=== PATIENT | female | born 1965 ===

== ENCOUNTER 2021-09-07 06:00 | Day surgery (SDC) | payer OTHER | END 2021-09-07 11:30 | disposition home or self-care (01) | LOC: AMB-ENDOS 06:00 | PROVIDERS: ATTEND Surgery | DX: D12.7 Benign neoplasm of rectosigmoid junction (principal); Z20.822 Contact with and (suspected) exposure to COVID-19; K62.89 Other specified diseases of anus and rectum; J45.909 Unspecified asthma, uncomplicated; Z88.0 Allergy status to penicillin; E03.9 Hypothyroidism, unspecified ==

== ENCOUNTER 2021-11-30 11:03 | Outpatient (CLI) | payer OTHER | END 2021-12-27 13:46 | disposition home or self-care (01) | LOC: SONOGRAMA 11:03 | PROVIDERS: ATTEND Pathology Anatomic Pathology & Clinical Pathology | DX: E04.2 Nontoxic multinodular goiter (principal) ==